=== PATIENT | female | born 1970 | race Caucasian/White ===

== ENCOUNTER 2016-09-09 02:08 | Emergency (ER) | payer OTHER ==
[~2016-09-09] VITALS: Wt 60.0 kg
[2016-09-09 02:27] VITALS: BP 115/84; PULSE 78; RESP 20; TEMP 97.6
[2016-09-09] MEDS ORDERED: ACTI200C PO (03:04)
[2016-09-09] MEDS ORDERED: morphine 4 MG/ML VIAL IV STA (03:12)
[2016-09-09] MEDS ORDERED: KETOROLAC 30 MG INJ IV STA (03:18)
[2016-09-09 03:20] LABS: BASOPHILS % 0.3 % (0.0-2.0); EOSINOPHILS # 0.2 10^3/ul (0.0-0.5); EOSINOPHILS % 2.8 % (0.0-7.0); HEMATOCRIT 34.1 % (37.0-47.0); HEMOGLOBIN 11.8 g/dl (12.0-16.0); LYMPHOCYTES # 2.5 10^3/ul (0.8-2.9); MEAN CORPUSCULAR HEMOGLOBIN 30.3 pg (29.0-33.0); MEAN CORPUSCULAR HGB CONC 34.6 g/dl (32.0-37.0); MEAN CORPUSCULAR VOLUME 87.7 fl (82.0-101.0); MEAN PLATELET VOLUME 9.5 fl (7.4-10.4); MONOCYTE # 0.5 10^3/ul (0.3-0.9); MONOCYTES % 6.7 % (0.0-11.0); NEUTROPHILS % 55.9 % (39.0-77.0); PLATELET COUNT 372 10^3/UL (140-415); RED BLOOD COUNT 3.89 10^6/ul (4.20-5.40); RED CELL DISTRIBUTION WIDTH 13.1 % (11.5-14.5); WHITE BLOOD COUNT 7.2 10^3/ul (4.8-10.8)
[2016-09-09 03:25] LABS: INR 0.95; PARTIAL THROMBOPLASTIN TIME 26.7 Sec (25.0-35.0); PROTIME 12.7 Sec (12.2-14.2)
[2016-09-09 03:31] LABS: ALANINE AMINOTRANSFERASE 29 IU/L (13-69); ALBUMIN 4.1 g/dl (3.3-4.9); ALBUMIN/GLOBULIN RATIO 1.28; ALKALINE PHOSPHATASE 87 IU/L (42-121); ANION GAP 17 (8-16); ASPARTATE AMINO TRANSFERASE 22 IU/L (15-46); BLOOD UREA NITROGEN 12 mg/dl (7-20); CALCIUM 8.5 mg/dl (8.4-10.2); CARBON DIOXIDE 27 mmol/L (21-31); CHLORIDE 104 mmol/L (97-110); CREATININE 0.78 mg/dl (0.44-1.00); GLUCOSE 92 mg/dl (70-220); POTASSIUM 3.7 mmol/L (3.5-5.1); SODIUM 144 mmol/L (135-144); TOTAL PROTEIN 7.3 g/dl (6.1-8.1)
[2016-09-09 03:47] LABS: TROPONIN-I < 0.012 ng/ml (0.00-0.12)
[2016-09-09 04:34] LABS: ADD UMIC NO; UR AMORPHOUS CRYSTAL FEW /HPF (NONE SEEN); UR ASCORBIC ACID NEGATIVE (NEGATIVE); UR BILIRUBIN (Dip) NEGATIVE (NEGATIVE); UR BLOOD (Dip) NEGATIVE (NEGATIVE); UR CLARITY SLIGHTLY CLOUDY (CLEAR); UR COLOR YELLOW (YELLOW); UR GLUCOSE (Dip) NEGATIVE (NEGATIVE); UR KETONES (Dip) NEGATIVE (NEGATIVE); UR LEUKOCYTE ESTERASE (Dip) NEGATIVE Leu/ul (NEGATIVE); UR MUCUS FEW /HPF (NONE SEEN); UR NITRITE (Dip) NEGATIVE (NEGATIVE); UR RBC 2 /HPF (0-5); UR SPECIFIC GRAVITY (Dip) 1.021 (1.003-1.030); UR TOTAL PROTEIN (Dip) NEGATIVE (NEGATIVE); UR UROBILINOGEN (Dip) NEGATIVE (NEGATIVE)
--- NOTE | 2016-09-09 06:18 | ERD ---
ER Documentation Chief Complaint Date/Time DATE: 09/09/16 TIME: 05:35 Chief Complaint Left upper abdominal pain started last night HPI 45-year-old female presenting with left upper quadrant and left flank pain that started last night. The pain has been intermittent. It was initially dull, and now it has been constant for the past few hours and described as sharp. She does not have pain when she does not move. When she moves she feels the pain, 9 out of 10. No associated chest pain, shortness of breath, dysuria, hematuria, nausea, vomiting, hematochezia or melena. No associated fevers or chills. She denies any recent trauma. No leg swelling or pain in her legs. No recent travel or immobilization. She does have a history of drinking vodka daily. ROS All systems reviewed and are negative except as per history of present illness. Medications Home Meds Reported Medications Activated Charcoal (Charcoal) 200 Mg Capsule, 200 MG PO, CAP 09/09/16 Allergies Allergies: Coded Allergies: Sulfa (Sulfonamide Antibiotics) (Verified Allergy, Unknown, 09/09/16) PMhx/Soc Medical and Surgical Hx: pt denies Medical Hx, pt denies Surgical Hx Hx Psychiatric Problems: No Hx Miscellaneous Medical Probl: No Hx Alcohol Use: Yes (last drink earlier today) Hx Substance Use: No Hx Tobacco Use: No Smoking Status: Current every day smoker FmHx Family History: No diabetes Physical Exam Vitals Vital Signs Date Time Temp Pulse Resp B/P Pulse Ox O2 Delivery O2 Flow Rate FiO2 09/09/16 02:27 97.6 78 20 115/84 98 Room Air 09/09/16 02:12 97.6 80 20 121/84 98 Physical Exam Const: Laying comfortably in bed, in no apparent distress Head: Atraumatic Eyes: Normal Conjunctiva ENT: Normal External Ears, Nose and Mouth. Neck: Full range of motion..~ No meningismus. Chest wall: Left lateral lower chest wall and anterior lower chest wall with tenderness to palpation over the lower ribs with no palpable deformities or ecchymoses. No crepitus Resp: Clear to auscultation bilaterally Cardio: Regular rate and rhythm, no murmurs. 2+ distal pulses Abd: Soft, non tender, non distended. Negative Wright sign. No hepatosplenomegaly per normal bowel sounds Skin: No petechiae or rashes Back: No midline or flank tenderness. Tenderness to the lower lateral flank area over the ribs. Ext: No cyanosis, or edema Neur: Awake and alert Psych: Normal Mood and Affect Result Diagram: 09/09/169 09/09/16 0249 Results 24 hrs Laboratory Tests Test 09/09/16 02:49 White Blood Count 7.210^3/ul Red Blood Count 3.8910^6/ul Hemoglobin 11.8g/dl Hematocrit 34.1% Mean Corpuscular Volume 87.7fl Mean Corpuscular Hemoglobin 30.3pg Mean Corpuscular Hemoglobin Concent 34.6g/dl Red Cell Distribution Width 13.1% Platelet Count 93993^3/UL Mean Platelet Volume 9.5fl Neutrophils % 55.9% Lymphocytes % 34.0% Monocytes % 6.7% Eosinophils % 2.8% Basophils % 0.3% Nucleated Red Blood Cells % 0.0/100WBC Neutrophils # 4.010^3/ul Lymphocytes # 2.510^3/ul Monocytes # 0.510^3/ul Eosinophils # 0.210^3/ul Basophils # 0.010^3/ul Nucleated Red Blood Cells # 0.010^3/ul Prothrombin Time 12.7Sec Prothrombin Time Ratio 1.0 INR International Normalized Ratio 0.95 Activated Partial Thromboplast Time 26.7Sec Urine Color YELLOW Urine Clarity SLIGHTLY CLOUDY Urine pH 7.0 Urine Specific Durand 1.021 Urine Ketones NEGATIVEmg/dL Urine Nitrite NEGATIVEmg/dL Urine Bilirubin NEGATIVEmg/dL Urine Urobilinogen NEGATIVEmg/dL Urine Leukocyte Esterase NEGATIVELeu/ul Urine Microscopic RBC 2/HPF Urine Microscopic WBC 2/HPF Urine Amorphous Crystals FEW/HPF Urine Mucus FEW/HPF Urine Hemoglobin NEGATIVEmg/dL Urine Glucose NEGATIVEmg/dL Urine Total Protein NEGATIVEmg/dl Sodium Level 144mmol/L Potassium Level 3.7mmol/L Chloride Level 104mmol/L Carbon Dioxide Level 27mmol/L Anion Gap 17 Blood Urea Nitrogen 12mg/dl Creatinine 0.78mg/dl Glucose Level 92mg/dl Calcium Level 8.5mg/dl Total Bilirubin 0.0mg/dl Direct Bilirubin 0.00mg/dl Indirect Bilirubin 0.0mg/dl Aspartate Amino Transf (AST/SGOT) 22IU/L Alanine Aminotransferase (ALT/SGPT) 29IU/L Alkaline Phosphatase 87IU/L Troponin I < 0.012ng/ml Total Protein 7.3g/dl Albumin 4.1g/dl Globulin 3.20g/dl Albumin/Globulin Ratio 1.28 Lipase 48U/L Current Medications Medications (Trade) Dose Ordered Sig/Rivka Route PRN Reason Start Time Stop Time Status Last Admin Dose Admin Morphine Sulfate (morphine) 4 mg ONCE STAT IV 09/09/16 03:12 09/09/16 03:19 DC Ketorolac Tromethamine (Toradol) 30 mg ONCE STAT IV 09/09/16 03:18 09/09/16 03:19 DC 09/09/16 03:25 Procedures/MDM EMERGENT LABS AND DIAGNOSTIC STUDIES: Lab Results above were reviewed and interpreted by me. CBC: no significant anemia or evidence of infection CMP: No evidence of electrolyte abnormality, renal failure, hypoglycemia, liver failure, or biliary obstruction Lipase: no evidence of pancreatitis Troponin within normal limits UA: no evidence of infection Radiology Results as interpreted by Radiology below were reviewed by Anmol Fletcher MD: Chest X-ray 1V Interpreted by me: Soft Tissue: No acute abnormalities Bones: No acute abnormalities Mediastinum/Cardiac Silhouette/Lungs: No acute abnormalities Initial Nursing notes reviewed. Previous Medical Records requested via the Electronic Health Record. EMERGENCY DEPARTMENT COURSE / MEDICAL DECISION MAKING: Patient is presenting with left flank pain. Her vitals are stable and she is afebrile. Labs did not show any significant abnormalities. Chest x-ray on my read did not show any acute abnormalities that would explain her pain. On exam she does have point tenderness, making my suspicion for chest wall tenderness versus muscle strain more of a possibility. I have a low suspicion for pulmonary embolism, aortic dissection, pneumothorax, or acute surgical abdomen. Patient's pain improved with Toradol. However prior to discharge, the patient states that she has the pain again. I explained to her that it does not seem that her pain is secondary to an emergent medical condition at this time but I cannot tell her why she is having the pain. The patient got very upset and believes that there is something wrong. She states she will go to another ER and left. Departure Diagnosis: Primary Impression: Left flank pain Condition: Stable Patient Instructions: Flank Pain, Uncertain Cause Referrals: [facility] YOU HAVE RECEIVED A MEDICAL SCREENING EXAM AND THE RESULTS INDICATE THAT YOU DO NOT HAVE A CONDITION THAT REQUIRES URGENT TREATMENT IN THE EMERGENCY DEPARTMENT. FURTHER EVALUATION AND TREATMENT OF YOUR CONDITION CAN WAIT UNTIL YOU ARE SEEN IN YOUR DOCTORS OFFICE WITHIN THE NEXT 1-2 DAYS. IT IS YOUR RESPONSIBILITY TO MAKE AN APPOINTMENT FOR FOLOW-UP CARE. IF YOU HAVE A PRIMARY DOCTOR --you should call your primary doctor and schedule an appointment IF YOU DO NOT HAVE A PRIMARY DOCTOR YOU CAN CALL OUR PHYSICIAN REFERRAL HOTLINE AT IF YOU CAN NOT AFFORD TO SEE A PHYSICIAN YOU CAN CHOSE FROM THE FOLLOWING [facility] [address] [facility] [address] [facility] [facility] [address] [facility] [facility] [address] [facility] [facility] [address] [facility]. [facility]. [address] Additional Instructions: Return to the ER for any worsening symptoms. Follow-up with your primary care doctor in the next 2 days per BECKY FLETCHER MD Sep 09, 2016 05:45
--- NOTE | 2016-09-09 06:25 | RADRPT ---
PROCEDURE: CHEST - 1 VIEW CLINICAL INDICATION: 45-year-old female with left chest/flank pain. TECHNIQUE: A single frontal AP portable upright view of the chest was performed. The images were reviewed on a PACS workstation. COMPARISON: None. FINDINGS: The cardiomediastinal silhouette has a normal appearance. There is no evidence for an infiltrate. There is no evidence for congestive heart failure. There is no evidence for pneumothorax. The osseou s structures are intact. IMPRESSION: No evidence for active cardiopulmonary disease. .Tino Tobar MD, MD Date Time Electronically viewed and signed by .Tino Tobar MD, on 09/09/2016 06:25 .M/
== END 2016-09-09 05:44 | disposition home or self-care (01) ==
LOC: E/R 02:08
DX: R10.12 Left upper quadrant pain (principal); F17.210 Nicotine dependence, cigarettes, uncomplicated
CPT/HCPCS: 36415; 71010; 80053; 81001; 83690; 84484; 85025; 85610; 85730; 96374; J1885; Z7502; 81003